=== PATIENT | female | born 1945 | race Caucasian/White ===

== ENCOUNTER 2021-11-13 21:34 | Emergency (ER) | payer OTHER ==
[~2021-11-13] VITALS: Ht 162.6 cm; Wt 68.0 kg
== END 2021-11-14 00:10 | disposition home or self-care (01) ==
LOC: ER 21:34
DX: S91.012A Laceration without foreign body, left ankle, initial encounter (principal); W26.8XXA Contact with other sharp object(s), not elsewhere classified, initial encounter
CPT/HCPCS: 12002; 99282-25